=== PATIENT | female | born 1970 | race Caucasian/White ===

== ENCOUNTER 2021-05-29 14:25 | Outpatient (CLI) | payer OTHER ==
[~2021-05-29 14:25] MED LIST: AVAPRO75 MG; TUSSI PRES-B L120 M1 PO
== END 2021-05-29 15:14 | disposition home or self-care (01) ==
LOC: ASH CLINIC 14:25
PROVIDERS: ATTEND Physical Medicine & Rehabilitation
DX: U07.1 COVID-19 (principal); Z23 Encounter for immunization

== ENCOUNTER 2022-05-01 20:14 | Emergency (ER) | payer OTHER ==
[~2022-05-01] VITALS: Ht 160 cm; Wt 90.7 kg
[2022-05-01] MEDS ORDERED: ZOCOR20 MG (21:57)
[2022-05-01] MEDS ORDERED: KETO10TA2 (21:58)
[2022-05-01] MEDS ORDERED: NORFLEX (21:59)
[2022-05-02] MEDS ORDERED: MEDROLPACK PO (00:58)
[2022-05-02] MEDS ORDERED: NORFLEX100MG PO (00:58)
[2022-05-02] MEDS ORDERED: KETO10TA2 PO (00:58)
== END 2022-05-02 01:36 | disposition home or self-care (01) ==
LOC: ER 20:14
DX: M54.32 Sciatica, left side (principal); I10 Essential (primary) hypertension; Z88.6 Allergy status to analgesic agent